=== PATIENT | female | born 1990 | race Caucasian/White ===

== ENCOUNTER 2019-04-04 09:34 | Day surgery (SDC) | payer BC ==
[2019-03-31 14:32] LABS: Absolute Lymphocytes (CBC) 2.6 K/uL (0.7-4.9); Basophils % 0.6 % (0-1.3); Hematocrit 36.9 % (36.0-45.0); Lymphocytes % 29.6 % (15.3-44.8); MPV 9.6 fL (7.6-11.3); RBC Red Blood Cell Count 4.91 M/uL (3.86-4.86)
[2019-03-31 14:48] LABS: ALT/SGPT 31 U/L (12-78); AST/SGOT 24 U/L (15-37); Amylase Level 50 U/L (25-115); BUN Blood Urea Nitrogen 14 mg/dL (7-18); Bicarbonate 31 mmol/L (21-32); Glucose Level 93 mg/dL (74-106); Lipase 135 U/L (73-393); Potassium 3.7 mmol/L (3.5-5.1); Sodium Level 139 mmol/L (136-145)
[~2019-04-04 09:34] MED LIST: CEFOXITIN/SWI 1gm 1 GM/10 ML SYR IVP SCH
--- OUTSIDE RECORDS SUMMARY | 2019-04-04 09:37 | XMS REPORT ---
:1990 [facility] Address [address] [place] [id number] Care Team Providers Name Role Phone Unavailable Unavailable Unavailable Problems This patient has no known problems. Allergies, Adverse Reactions, Alerts This patient has no known allergies or adverse reactions. Medications This patient has no known medications.
[2019-04-04 09:51] LABS: Specific Gravity 1.025 (1.005-1.030)
[2019-04-04] MEDS ORDERED: Ringers Lactate 1,000 ML IV ONE (10:34)
[2019-04-04] MEDS ORDERED: CEFOXITIN/SWI 1gm 1 GM/10 ML SYR ONE (10:36)
[2019-04-04] MEDS ORDERED: MIDAZOLAM HCL 2 MG/2 ML INJ ONE (11:36)
[2019-04-04] MEDS ORDERED: propofoL 200 MG/20 ML VIAL IV ONE (11:36)
[2019-04-04] MEDS ORDERED: FENTANYL CITR 100 MCG/2 ML ONE ×3 (11:36→12:10)
[2019-04-04] MEDS ORDERED: ROCURONIUM 50 MG/5 ML VIAL IV ONE (11:37)
[2019-04-04] MEDS ORDERED: LIDOCAINE 1% MPF 5 ML VIAL ONE (11:37)
[2019-04-04] MEDS ORDERED: ONDANSETRON 4 MG/2 ML VIAL ONE (12:16)
[2019-04-04] MEDS ORDERED: KETOROLAC 30 MG/ML INJ ONE (12:16)
[2019-04-04] MEDS ORDERED: GLYCOPYRROLATE 0.2 MG/ML SYR ONE ×2 (12:16→12:23)
--- NOTE | 2019-04-04 12:36 | P.BOP ---
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
[2019-04-04] MEDS: HYDROMORPHONE HCL 1 MG/ML INJ ONE ×4 (12:45→13:05)
[2019-04-04] MEDS ORDERED: DIPHENHYDRAMINE 50 MG/ML VIAL ONE (13:13)
[2019-04-04 14:37] VITALS: BP 106/65; TEMP 98; O2SAT 100
--- NOTE | 2019-04-08 19:01 | OP ---
Date of Procedure: 04/04/2019 Surgeon: Codey Beckwith MD Community Services Coordinator: MARIO Beltran. Preoperative Diagnoses: Symptomatic cholelithiasis, cholecystitis, right upper quadrant abdominal pa in. Postoperative Diagnoses: Symptomatic cholelithiasis, cholecystitis, right upper quadrant abdominal p ain. Procedure: Laparoscopic cholecystectomy. Estimated Blood Loss: Less than 10 mL. Anesthesia: General plus local. Indications: This is the case of a 28-year-old patient, comes to us with the above diagnoses. Fully explained the benefits, alternatives, and risks of laparoscopic, possible open cholecystectomy, whic h include but are not limited to infection, bleeding, damage to adjacent structures, anesthesia compl ication, choledocholithiasis, bile leak, pancreatitis, AK, and even . She also understands this may not relieve any symptoms. She may need more than 1 surgical intervention. She understood, sign ed a consent. Description Of Procedure: Patient was brought to the operating room, placed in supine position. Ane sthesia was given without complication. Abdominal area was prepped and draped in the usual sterile f ashion. Marcaine 0.5% was injected for local anesthetic, followed by sharp incision of the skin in t he infraumbilical region. Incision was carried down to fascia, which was opened under direct vision. Peritoneum was encountered, opened under direct vision. Vicryl #1 placed inside the fascia. Hasso n trocar was carefully introduced. No bleeding was obtained. I placed 3 more trocars, 5 mm each one of them, in the right upper quadrant under direct visualization. After that, we placed a grasper in the fundus of the gallbladder, another grasper in the infundibulum, retracted the gallbladder in the inferolateral fashion exposing the triangle of Calot and obtaining critical view of safety. Cystic duct and cystic artery were clearly isolated, freed circumferentially and a connection between those and the gallbladder were clearly identified. We proceeded to ligate those by using at least 3 clips proximal, 1 clip distal, ligation in middle. Same was done with the cystic artery. No bile leak. N o bleeding. The gallbladder was removed from liver using Bovie cauterizer and removed from abdominal cavity using an EndoCatch through the umbilical incision. The area was inspected once again. No bi le leak. No bleeding. At that moment, I proceeded to remove the trocars under direct vision. Defla mian the pneumoperitoneum. Closed the fascia with #1 Vicryl. Irrigated subcu tissue, closed that wit h 3-0 chromic and then the skin approximated. Sponge count and instrument counts were correct. Ashley ent tolerated the procedure well. Patient was sent to recovery in stable condition. Disposition: Home. Activity: As tolerated. No heavy lifting. Followup: Follow up in my office in 1 week. Call for appointment at [phone]. Keep area dry for 48 hours, then may shower. Medications: See orders. MASON/MODL Voice ID: [id number] Report ID: [id number]
== END 2019-04-04 14:50 | disposition home or self-care (01) ==
LOC: OR 09:34
PROVIDERS: ATTEND Surgery
PROC: 0FT44ZZ Resection of Gallbladder, Percutaneous Endoscopic Approach (ICD-10-PCS; principal; 2019-04-04 12:45)
DX: K80.10 Calculus of gallbladder with chronic cholecystitis without obstruction (principal); K21.9 Gastro-esophageal reflux disease without esophagitis; Z83.3 Family history of diabetes mellitus
CPT/HCPCS: 85025; 80048; 36415; 82150; 81025; 84450; 84460; 88304; 83690; 47562; J2704; J1200; J2250; J3010 ×3; J1170 ×2; J7120; J2405